=== PATIENT | female | born 1940 | race Caucasian/White ===

== ENCOUNTER 2017-02-12 11:57 | Day surgery (SDC) | payer MEDICARE, OTHER ==
[~2017-02-12] VITALS: Ht 167.6 cm; Wt 72.6 kg
[~2017-02-12 11:57] MED LIST: ASPI-973 PO; BIOT1TAB13 PO; CHOL500011 PO; CYAN250014 PO; FLUT9.9S NS; HYDR25TA4 PO; KRIL500C PO; LACT1CAP73 PO; LEVO75TA4 PO; MULT-666 PO; PRE625 PO; RANI300C PO; Sodium Chloride LOK Flush 10 mL Syringe IV PRN; fentaNYL-PF 50 mCg/mL 2 mL Inj IVPUSH PRN
[2017-02-12 13:24] VITALS: BP 168/84; PULSE 81; RESP 14; O2SAT 100
[2017-02-12 14:29] VITALS: BP 107/69; PULSE 74; RESP 16; O2SAT 98
[2017-02-12 14:39] VITALS: BP 114/66; PULSE 76; RESP 16; O2SAT 96
[2017-02-12 14:49] VITALS: BP 142/79; PULSE 74; RESP 16; O2SAT 97
[2017-02-12] MEDS ORDERED: 0.9% Sodium Chloride 1,000 ML IV ONE (14:51)
--- NOTE | 2017-02-12 15:04 | ENDO ---
[address] [address] ENDOSCOPY PROCEDURE PATIENT: EBONY SALEH : 1940 MR#: [id number] ADMIT: 02/12/2017 JOB ID: [id number] TYPE OF OPERATION: Esophagogastroduodenoscopy, biopsy, colonoscopy. PREOPERATIVE DIAGNOSIS(ES): Gastroesophageal reflux disease, history of colon polyps. POSTOPERATIVE DIAGNOSIS(ES): 1. Mild distal esophagitis. 2. Mild nonerosive gastritis. 3. Mild sigmoid diverticulosis. 4. Small internal hemorrhoids. ANESTHESIA: Fentanyl 150 mcg, Versed 7 mg IV administered. COMPLICATIONS: None. BLOOD LOSS: Minimal. DESCRIPTION OF PROCEDURE: After risks and benefits were explained to the patient, informed consent was obtained. After anesthesia administered, an upper endoscope was then inserted in the mouth, intubated into esophagus, stomach, second portion of duodenum. Mucosa carefully examined. After procedure done, scope withdrawn, procedure terminated. Then, the colonoscope was inserted from the rectum to the cecum. Mucosa carefully examined. Prep of the patient was excellent. After procedure was done, the scope withdrawn, procedure terminated. FINDINGS: Upon inspection of the esophagus, esophagus was normal without masses, ulcers, except for mild erythema in distal esophagus most consistent with mild erosive esophagitis. This Z-line located 40 cm from the incisors. Upon entering stomach, there was mild nonerosive gastritis that was seen. No masses, ulcers, lesions were seen. Retroflexion was normal. Duodenal bulb, first and second portion were normal. Retroflexion was normal. Duodenal bulb, first and second portion were normal. Biopsies taken of antrum, body of stomach and mid and distal esophagus. Upon inspection of the anus, no masses, hemorrhoids, ulcers, fissures are seen throughout the entire examination. There was mild sigmoid diverticulosis that was seen. No polyps or masses were seen. Retroflexion showed small internal hemorrhoids. IMPRESSION: Small internal hemorrhoids. Mild sigmoid diverticulosis. Mild nonerosive gastritis. Mild distal esophagitis. RECOMMENDATIONS: Await pathology results. High-fiber diet. Repeat colonoscopy in five years given history of colon polyps.
--- NOTE | 2017-02-15 15:19 | PATH ---
SURGICAL PATHOLOGY Attending Physician:Arnulfo Aguirre MD CASE STATUS: Signed Out PATIENT NAME: EBONY SALEH PID: [id number] : 1940 DATE COLLECTED:02/12/2017 00:00 SPECIMEN: 1: Stomach, Antrum, Biopsy 2: Gastric, Biopsy 3: Esophagus, Biopsy CLINICAL HISTORY: GERD, PERSONAL HISTORY OF POLYPS 1). ANTRUM BIOPSY 2). GASTRIC BODY BIOPSY 3). DISTAL ESOPHAGUS BIOPSY FINAL DIAGNOSIS: 1.ANTRUM BIOPSY: MILD CHRONIC GASTRITIS INVOLVING ANTRAL MUCOSA. Negative for evidence of Helicobacter. Negative for intestinal metaplasia. Negative for dysplasia and malignancy. 2.GASTRIC BODY BIOPSY: MILD CHRONIC GASTRITIS INVOLVING FUNDIC MUCOSA. Negative for evidence of Helicobacter. Negative for intestinal metaplasia. Negative for dysplasia and malignancy. 3.DISTAL ESOPHAGUS BIOPSY: FRAGMENTS OF SQUAMOUS EPITHELIUM AND SMALL AMOUNT OF GASTRIC CARDIA-TYPE MUCOSA, NEGATIVE FOR SPECIALIZED METAPLASIA OF CRAWFORD' S-TYPE ESOPHAGUS. Negative for dysplasia and malignancy. Eosinophils are not increased. ICD10 code K29.70 GROSS DESCRIPTION: 1. Received in formalin, labeled with the patient' s name and "antrum BX", is one fragment of graves, soft tissue measuring 0.3 x 0.2 x 0.2 cm. The fragment is totally submitted in cassette 1A. 2. Received in formalin, labeled with the patient' s name and "gastric body BX", are two fragments of graves, soft tissue ranging in size from 0.2 x 0.1 x 0.1 cm to 0.2 x 0.2 x 0.1 cm. All fragments are totally submitted in cassette 2A. 3. Received in formalin, labeled with the patient' s name and "distal esophagus BX", are three fragments of graves, soft tissue ranging in size from 0.1 x 0.1 x 0.1 cm to 0.3 x 0.2 x 0.1 cm. All fragments are totally submitted in cassette 3A. ([id number]) MICRO DESCRIPTION: See diagnosis. ICD-9 CODES: CPT CODES: 1: 07890 2: 16042 3: 23414 Electronically Signed Out Juice Hough MD [facility] Pathology [facility] [address] [place] [id number] Technical component performed at [facility], [address], [place], [address]
== END 2017-02-12 23:59 | disposition home or self-care (01) ==
LOC: END 11:57
PROVIDERS: ATTEND Internal Medicine Gastroenterology
DX: Z12.11 Encounter for screening for malignant neoplasm of colon (principal); Z86.010 Personal history of colon polyps; K64.8 Other hemorrhoids; K29.50 Unspecified chronic gastritis without bleeding; K21.9 Gastro-esophageal reflux disease without esophagitis; I10 Essential (primary) hypertension; E03.9 Hypothyroidism, unspecified; K57.30 Diverticulosis of large intestine without perforation or abscess without bleeding; M85.80 Other specified disorders of bone density and structure, unspecified site; Z79.82 Long term (current) use of aspirin; Z79.890 Hormone replacement therapy
CPT/HCPCS: 43239; 88305; 99153; G0105; G0500; J7030